=== PATIENT | male | born 1970 | race Caucasian/White ===

== ENCOUNTER 2016-08-28 11:11 | Emergency (ER) | payer OTHER ==
[2016-08-28 11:24] VITALS: BP 150/104; PULSE 98; RESP 16; TEMP 98.6; O2SAT 95
--- NOTE | 2016-08-28 12:55 | UCPHY ---
H & P Time Seen by Provider: 08/28/16 11:25 Patient Type: New HPI/ROS: CHIEF COMPLAINT: Itchy throat History by patient HISTORY OF PRESENT ILLNESS: 46-year-old man presents complaining of more than a week of posterior nasal drainage especially in the mornings, itchy uncomfortable throat and generalized fatigue and malaise. He denies any fever, chills, nausea or vomiting. He denies any headache or runny nose. He occasionally has a nonproductive cough. He feels generally unwell and has been taking pseudoephedrine with no relief. He has had similar symptoms every spring in the past but states that he had allergy test that was negative. He has used Claritin in the past with good relief. He is leaving to go to [place] in 4 days and is requesting a prescription for antibiotics because he thinks he has a sinus infection. He says he sleeps with a humidifier and has done nasal washes in the past but not recently. REVIEW OF SYSTEMS: As in HPI, and all other systems reviewed and are negative Smoking Status: Never smoked Physical Exam: General Appearance: Alert and no distress. Head: normocephalic, atraumatic, no sinus tenderness Eyes: Pupils equal and round no injection. Ears: TM clear bilat OP: mucus membranes moist, no tonsillar enlargement, mild erythema, no exudates Neck: no meningismus, no cervical nodes, no submandibular nodes Respiratory: Chest is nontender, lungs are clear to auscultation. Cardiac: regular rate and rhythm. Gastrointestinal: Abdomen is soft and nontender, no masses, bowel sounds normal. Musculoskeletal: Neck is supple and nontender. Extremities have full range of motion and are nontender. Skin: No rashes or lesions. Constitutional: Initial Vital Signs Temperature (C) 37 C 08/28/16 11:17 Heart Rate 98 08/28/16 11:17 Respiratory Rate 16 08/28/16 11:17 Blood Pressure 150/104 H 08/28/16 11:17 O2 Sat (%) 95 08/28/16 11:17 O2 Delivery Mode Room Air Allergies/Adverse Reactions: No Known Allergies Allergy (Verified 08/28/16 11:16) Home Medications: Medication Instructions Recorded Aspirin [Aspir 81] 81 mg PO 03/22/12 Desloratadine/Pseudoephedrine 1 each PO 11/11/12 [Clarinex-D 24 Hour Tablet] Lisinopril 10 mg PO 03/22/12 Simvastatin 40 mg PO 03/22/12 Fluticasone Nasal [Flonase Nasal 2 sprays NASAL DAILY #1 mdi 08/28/16 [place] (RX)] Medical Decision Making ED Course/Re-evaluation: 46-year-old man presents with seasonal allergic symptoms and no evidence of infection. Patient was initially requesting antibiotics however he has not had fever, headache or other evidence of infectious process. We discussed symptomatic care for his seasonal allergies and he will be started on nasal steroids and antihistamines. Patient was discharged home in stable condition. Departure - Departure Disposition: Home, Routine, Self-Care Clinical Impression: Seasonal allergic reaction Qualifiers: Allergic rhinitis trigger: unspecified Qualified Code(s): J30.2 - Other seasonal allergic rhinitis Condition: Good Instructions: Allergic Rhinitis (ED), Allergies (ED) Additional Instructions: You were seen by Dr. Nita Monroe today. Return for any worsening or new concerns. Use nasal steroids daily. The effects of these will not be evident for more than a week. Use cetirizine (Zyrtec) for the runny nose, itchy throat and other allergy symptoms. Do nasal washes if he can tolerate that. Referrals: Anastacia Varghese MD [Primary Care Provider] - As per Instructions Prescriptions: Fluticasone Nasal [Flonase Nasal [place] (RX)] 2 sprays NASAL DAILY #1 mdi - PQRS PQRS Measurement: NA
== END 2016-08-28 12:57 | disposition home or self-care (01) ==
LOC: CED 11:11
DX: J30.2 Other seasonal allergic rhinitis (principal)
CPT/HCPCS: 99203-PO; G0463-PO